=== PATIENT | male | born 1940 | race Caucasian/White ===

== ENCOUNTER 2017-02-24 09:28 | Outpatient (CLI) | payer MEDICARE, OTHER ==
[~2017-02-24 09:28] MED LIST: IOPAMIDOL-300 100 ML VIAL ONE
[2017-02-24 09:50] LABS: CREATININE 0.8 mg/dL (0.6-1.2)
[2017-02-24] MEDS ORDERED: IOPAMIDOL-300 100 ML VIAL IVP ONE (10:29)
--- NOTE | 2017-02-24 18:38 | CT Report ---
DATE OF SERVICE: 02/24/2017 CT IVP: 02/24/2017 CLINICAL INDICATION: Prostate cancer, gross hematuria. Axial CT images of the abdomen and pelvis were obtained prior to and following 100 mL Isovue 300 intravenously, using split bolus technique. In accordance with CT protocol optimization, one or more of the following dose reduction techniques were utilized for this exam: Automated exposure control, adjustment of mA and/or KV based on patient size, or use of iterative reconstructive technique. No previous CT is available for comparison. Limited evaluation of the lung bases is unremarkable. ABDOMEN: On the unenhanced images, there is no evidence of nephrolithiasis or hydronephrosis. Both kidneys demonstrate symmetric uptake and excretion of contrast. No focal renal lesion or collecting system lesion is appreciated. Allowing for the phase of contrast enhancement, the liver, spleen, pancreas and adrenal glands are unremarkable. No hydroureter or ureteric lesion is appreciated. PELVIS: Postoperative changes of prostatectomy and iliac node dissection are present. The distal ureters are not dilated. The urinary bladder appears unremarkable. No free fluid or pelvic adenopathy is appreciated. Osseous structures demonstrate degenerative changes. IMPRESSION: No evident upper tract etiology for patient's hematuria. Consider correlation with cystoscopy. Postoperative changes of prostatectomy and iliac node dissection. TD: 02/24/2017 19:37
== END 2017-02-24 09:29 | disposition home or self-care (01) ==
LOC: LAB 09:28
PROVIDERS: ATTEND Urology
DX: R31.0 Gross hematuria (principal); Z85.46 Personal history of malignant neoplasm of prostate
CPT/HCPCS: 36415; 74178; 82565; 84520; Q9967

== ENCOUNTER 2017-09-13 09:11 | Outpatient (CLI) | payer MEDICARE, OTHER ==
[2017-09-13 12:45] LABS: BASOPHILS # (AUTO) 0.1 10^3/uL (0.0-0.1); BASOPHILS % (AUTO) 1.2 %; EOSINOPHILS # (AUTO) 0.3 10^3/uL (0.0-0.7); EOSINOPHILS % (AUTO) 6.7 %; HGB - HEMOGLOBIN 11.5 g/dL (14.0-18.0); LYMPHOCYTES # (AUTO) 1.1 10^3/uL (1.5-3.5); LYMPHOCYTES % (AUTO) 25.6 %; MEAN CORPUSCULAR HEMOGLOBIN 34.4 pg (27.0-31.0); MEAN CORPUSCULAR HGB CONC 34.7 g/dL (32.0-36.0); MEAN CORPUSCULAR VOLUME 99.3 fL (80.0-94.0); MEAN PLATELET VOLUME 9.6 fL (7.4-11.4); MONOCYTES # (AUTO) 0.5 10^3/uL (0.0-1.0); MONOCYTES % (AUTO) 12.1 %; NEUTROPHILS # (AUTO) 2.4 10^3/uL (1.5-6.6); NEUTROPHILS % (AUTO) 54.4 %; PLT - PLATELET COUNT 225 10^3/uL (130-450); RED BLOOD COUNT 3.34 10^6/uL (4.70-6.10); RED CELL DISTRIBUTION WIDTH 12.4 % (12.0-15.0); WHITE BLOOD COUNT 4.3 x10^3/uL (4.8-10.8)
[2017-09-13 13:29] LABS: ALBUMIN 3.8 g/dL (3.2-5.5); ALBUMIN/GLOBULIN RATIO 1.3 (1.0-2.2); BILIRUBIN,TOTAL 0.7 mg/dL (0.2-1.0); CALCIUM 8.7 mg/dL (8.5-10.3); CREATININE 0.7 mg/dL (0.6-1.2); TOTAL PROTEIN 6.8 g/dL (6.7-8.2)
== END 2017-09-13 09:12 ==
LOC: LAB.WCP 09:11
PROVIDERS: ATTEND Family Medicine
DX: S70.11XD Contusion of right thigh, subsequent encounter (principal)
CPT/HCPCS: 36415; 80053; 85025

== ENCOUNTER 2017-09-27 21:55 | Outpatient (CLI) | payer MEDICARE, OTHER ==
--- NOTE | 2017-09-27 23:25 | Ultrasound Report ---
Procedure Date: 09/27/2017 Accession Number: [id number] / [id number] Procedure: US - Duplex Ext Veins Right CPT Code: FULL RESULT: EXAM: RIGHT LOWER EXTREMITY VENOUS ULTRASOUND EXAM DATE: 09/27/2017 10:53 PM. CLINICAL HISTORY: Contusion of right thigh. COMPARISON: None. TECHNIQUE: Real-time sonographic vascular imaging was performed by the wire stripper through the lower extremity utilizing both color-flow and Doppler spectral analysis. Multiple representative government relations static images were saved for review. FINDINGS: Common Femoral Vein (CFV): Normal. CFV-GSV Junction: Normal. Profunda Femoral Vein (PFV): Normal. Femoral Vein (FV) Prox: Normal. Femoral Vein (FV) Mid: Normal. Femoral Vein (FV) Dist: Normal. Popliteal Vein: Normal. Posterior Tibial Veins: Normal. Peroneal Veins: Normal. Contralateral Left CFV: Normal. Other: None. IMPRESSION: No evidence for deep venous thrombosis. RADIA
== END 2017-09-27 21:56 | disposition home or self-care (01) ==
LOC: DI 21:55
PROVIDERS: ATTEND Orthopaedic Surgery Sports Medicine
DX: S70.11XD Contusion of right thigh, subsequent encounter (principal)

== ENCOUNTER 2018-06-07 08:00 | Outpatient (CLI) | payer MEDICARE, OTHER ==
[2018-06-07 13:39] LABS: BASOPHILS # (AUTO) 0.1 10^3/uL (0.0-0.1); BASOPHILS % (AUTO) 1.3 %; EOSINOPHILS # (AUTO) 0.2 10^3/uL (0.0-0.7); EOSINOPHILS % (AUTO) 4.1 %; HGB - HEMOGLOBIN 13.3 g/dL (14.0-18.0); LYMPHOCYTES # (AUTO) 1.4 10^3/uL (1.5-3.5); MEAN CORPUSCULAR HEMOGLOBIN 33.6 pg (27.0-31.0); MEAN CORPUSCULAR VOLUME 98.8 fL (80.0-94.0); MEAN PLATELET VOLUME 9.8 fL (7.4-11.4); MONOCYTES # (AUTO) 0.6 10^3/uL (0.0-1.0); MONOCYTES % (AUTO) 15.1 %; NEUTROPHILS # (AUTO) 1.7 10^3/uL (1.5-6.6); NEUTROPHILS % (AUTO) 42.5 %; PLT - PLATELET COUNT 230 10^3/uL (130-450); RED BLOOD COUNT 3.95 10^6/uL (4.70-6.10); RED CELL DISTRIBUTION WIDTH 12.5 % (12.0-15.0); WHITE BLOOD COUNT 3.9 x10^3/uL (4.8-10.8)
[2018-06-07 14:59] LABS: ALBUMIN 3.7 g/dL (3.2-5.5); ALBUMIN/GLOBULIN RATIO 1.2 (1.0-2.2); ALKALINE PHOSPHATASE 54 IU/L (42-121); ALT ALANINE AMINOTRANSFERASE 29 IU/L (10-60); AST ASPARTATE AMINOTRANSFERASE 37 IU/L (10-42); BILIRUBIN,TOTAL 0.6 mg/dL (0.2-1.0); BUN - BLOOD UREA NITROGEN 13 mg/dL (6-20); CHOL/HDL RATIO 3.6 (<5.0); CHOLESTEROL 127 mg/dL; CREATININE 0.8 mg/dL (0.6-1.2); GFR - MDRD 94 (>89); HDL CHOLESTEROL 35 mg/dL; MAGNESIUM 2.4 mg/dL (1.7-2.8); TOTAL PROTEIN 6.8 g/dL (6.7-8.2)
[2018-06-07 15:28] LABS: CALCIUM 8.9 mg/dL (8.5-10.3); CARBON DIOXIDE - CO2 31 mmol/L (21-32); CHLORIDE 98 mmol/L (101-111); GLUCOSE 102 mg/dL (70-100); LDL CHOLESTEROL,DIRECT 94 mg/dL; LDLD/HDL RATIO 2.7 (<3.6); SODIUM 138 mmol/L (135-145)
== END 2018-06-07 23:59 | disposition home or self-care (01) ==
LOC: LAB.WCP 08:00
PROVIDERS: ATTEND Family Medicine
DX: D50.9 Iron deficiency anemia, unspecified (principal); R25.2 Cramp and spasm; G60.9 Hereditary and idiopathic neuropathy, unspecified
CPT/HCPCS: 36415; 80053; 80061; 82607; 83721; 83735; 83921; 84443; 85025

== ENCOUNTER 2018-07-27 12:03 | Outpatient (CLI) | payer MEDICARE, OTHER | END 2018-07-27 12:04 | disposition home or self-care (01) | LOC: LAB.WCP 12:03 | PROVIDERS: ATTEND Family Medicine | DX: G60.9 Hereditary and idiopathic neuropathy, unspecified (principal); E53.8 Deficiency of other specified B group vitamins | CPT/HCPCS: 36415; 82607; 83921 ==

== ENCOUNTER 2019-03-20 07:00 | Outpatient (CLI) | payer MEDICARE, OTHER ==
[2019-03-20 19:04] LABS: BASOPHILS # (AUTO) 0.1 10^3/uL (0.0-0.1); BASOPHILS % (AUTO) 1.2 %; EOSINOPHILS # (AUTO) 0.2 10^3/uL (0.0-0.7); EOSINOPHILS % (AUTO) 5.7 %; HGB - HEMOGLOBIN 12.6 g/dL (14.0-18.0); LYMPHOCYTES # (AUTO) 1.4 10^3/uL (1.5-3.5); LYMPHOCYTES % (AUTO) 32.5 %; MEAN CORPUSCULAR HEMOGLOBIN 31.9 pg (27.0-31.0); MEAN CORPUSCULAR HGB CONC 31.6 g/dL (32.0-36.0); MEAN PLATELET VOLUME 12.2 fL (7.4-11.4); MONOCYTES # (AUTO) 0.6 10^3/uL (0.0-1.0); MONOCYTES % (AUTO) 13.4 %; NEUTROPHILS % (AUTO) 47.2 %; PLT - PLATELET COUNT 265 10^3/uL (130-450); RED BLOOD COUNT 3.95 10^6/uL (4.70-6.10); RED CELL DISTRIBUTION WIDTH 12.2 % (12.0-15.0); WHITE BLOOD COUNT 4.2 x10^3/uL (4.8-10.8)
== END 2019-03-20 23:59 | disposition home or self-care (01) ==
LOC: LAB.WCP 07:00
PROVIDERS: ATTEND Family Medicine
DX: E53.8 Deficiency of other specified B group vitamins (principal)
CPT/HCPCS: 36415; 82607; 85025

== ENCOUNTER 2020-04-17 18:48 | Outpatient (CLI) | payer MEDICARE, OTHER | END 2020-04-17 18:49 | disposition home or self-care (01) | LOC: COV 18:48 | PROVIDERS: ATTEND Family Medicine | DX: R50.9 Fever, unspecified (principal); M79.10 Myalgia, unspecified site; R07.0 Pain in throat; R43.8 Other disturbances of smell and taste; Z20.822 Contact with and (suspected) exposure to COVID-19 ==

== ENCOUNTER 2023-05-05 08:00 | Outpatient (CLI) | payer MEDICARE, OTHER ==
[2023-05-05 16:14] LABS: BILIRUBIN,URINE NEGATIVE (NEGATIVE); GLUCOSE, URINE (UA) NEGATIVE (NEGATIVE); KETONES,URINE (UA) NEGATIVE (NEGATIVE); LEUKOCYTE ESTERASE, URINE NEGATIVE (NEGATIVE); NITRITE,URINE NEGATIVE (NEGATIVE); OCCULT BLOOD,URINE NEGATIVE (NEGATIVE); PH,URINE 6.5 PH (5.0-7.5); PROTEIN,URINE NEGATIVE (NEGATIVE); UROBILINOGEN,URINE 0.2 (NORMAL) E.U./dL (NORMAL)
[2023-05-05 16:22] LABS: BACTERIA,URINE None Seen /HPF (None Seen); CLARITY,URINE CLEAR (CLEAR); RBC,URINE 0-5 /HPF (0-5); SQUAMOUS EPITHELIAL CELL,UR NONE SEEN (<= Few); WBC,URINE 0-3 /HPF (0-3)
== END 2023-05-05 23:59 | disposition home or self-care (01) ==
LOC: LAB 08:00
PROVIDERS: ATTEND Urology
DX: C61 Malignant neoplasm of prostate (principal); Z90.79 Acquired absence of other genital organ(s); N30.10 Interstitial cystitis (chronic) without hematuria
CPT/HCPCS: 81001; 87086

== ENCOUNTER 2023-06-13 10:01 | Outpatient (CLI) | payer MEDICARE, OTHER ==
--- NOTE | 2023-06-13 12:06 | MRI Report ---
PROCEDURE: Lumbar Spine WO INDICATIONS: LOW BACK PAIN TECHNIQUE: Noncontrast sagittal T1 spin echo and T2 fast echo, sagittal STIR, axial T1 and T2 fast spin echo thr ough the lumbar spine. In cases with scoliosis, additional coronal T2 fast spin echo may be performe d. COMPARISON: Correlation is made with the accompanying imaging. Correlation is also made with prior C T, 02/24/2017 FINDINGS: Image quality: Motion artifact is noted. Alignment and Curvature: There is normal bony alignment. Bone Marrow: Marrow is of normal overall signal. No acute vertebral body compression fractures. Spinal Cord: Conus medullaris terminates at the L1 level. Visualized cord demonstrates normal signa l and size. Paraspinous Soft Tissues: No paravertebral masses. T12-L1: Normal in appearance. L1-L2: The disc height is well-preserved. There is loss of disc signal seen. Mild disc bulge is s een. Mild bilateral neural foraminal narrowing is seen. No central canal narrowing is seen. L2-L3: Moderate loss of disc height is seen. The disc signal is relatively well preserved. Mild to moderate disc bulge is seen. A superimposed central disc protrusion is seen. There is mild to modera te left-sided and moderate right-sided neuroforaminal narrowing. Mild central canal narrowing is see n. L3-L4: Mild to moderate loss of disc height and disc signal can be seen. Mild disc bulge is seen. A superimposed central disc Mild facet hypertrophy is seen. is seen. Mild facet hypertrophy is s een. Moderate bilateral neural foraminal narrowing is seen. L4-L5: At least moderate loss of disc height and disc signal can be seen. Reactive marrow endplate changes are seen, which are hyperintense on T1-weighted and T2-weighted imaging, without significant increased STIR signal. 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 Mild to moderate disc bulge is seen, which is eccentric to the right. A superimposed centr al disc protrusion is seen. Mild facet hypertrophy is seen. Moderate bilateral neural foraminal na rrowing is seen. Minimal central canal narrowing is seen. L5-S1: Mild loss of disc height and disc signal are seen. Mild disc bulge is seen. There is mild r ight-sided and moderate left-sided facet hypertrophy. There is moderate right-sided and moderate to s evere left-sided neuroforaminal narrowing. There is a new compression seen upon the exiting right L5 nerve root. IMPRESSION: Lumbar spine degenerative changes are seen, which are worst inferiorly. Reviewed by: José Luis Burgess MD on 06/13/2023 11:05 AM TAMMI Approved by: José Luis Burgess MD on 06/13/2023 11:05 AM TAMMI Station ID: [id number]
--- NOTE | 2023-06-13 12:13 | MRI Report ---
PROCEDURE: Cervical Spine WO INDICATIONS: CERVICALGIA TECHNIQUE: Noncontrast sagittal T1 spin echo and T2 fast spin echo, sagittal STIR, foraminal oblique sagittal T2 fast spin echo, and axial gradient echo or T2 fast spin echo through the cervical spine. COMPARISON: Correlation is made with the accompanying imaging. FINDINGS: Image quality: Motion artifact is noted. Alignment and Curvature: There is normal bony alignment. Bone Marrow: Marrow demonstrates normal overall signal. Spinal Cord: Visualized spinal cord has normal size and signal. No cerebellar tonsillar herniation. Paraspinous Soft Tissues: No paravertebral masses. Prevertebral soft tissues are normal in thicknes s. C2-C3: The disc height and disc signal are well preserved. Mild disc osteophyte complex is seen. Th ere is mild left-sided facet hypertrophy. There is mild left-sided neuroforaminal narrowing. No right -sided neuroforaminal narrowing is seen. No central canal narrowing is seen. C3-C4: The disc height is well-preserved. There is loss of disc signal seen. Mild disc osteophyte complex is seen. Moderate facet hypertrophy is seen. There is moderate to severe left-sided and at l east moderate right-sided neuroforaminal narrowing. Minimal central canal narrowing is seen. C4-C5: The disc height is well-preserved. There is loss of disc signal seen. Mild disc osteophyte c omplex is seen. Moderate facet hypertrophy is seen. There is moderate to severe left-sided and moder ate right-sided neuroforaminal narrowing. Minimal central canal narrowing is seen. C5-C6: Moderate loss of disc height and signal are seen. At least moderate disc osteophyte complex is seen. There is a central disc osteophyte protrusion. Uncovertebral joint hypertrophy is seen at this level. There is at least moderate bilateral facet hypertrophy seen, right worse than left. There is moderate to severe right-sided and at least moderate left-sided neuroforaminal narrowing. Modera te central canal narrowing is seen. Associated mass effect is seen upon the ventral spinal cord. C6-C7: Moderate loss of disc height and signal are seen. Moderate disc osteophyte complex is seen. There is a mild central/left disc osteophyte protrusion. Moderate facet hypertrophy is seen. There is moderate to severe right-sided and at least moderate left-sided neuroforaminal narrowing. Mild c entral canal narrowing is seen. C7-T1: No significant abnormality is seen. IMPRESSION: Multiple levels of cervical spine degenerative change can be seen, which are overall worst at the C5- C6 level. Reviewed by: José Luis Burgess MD on 06/13/2023 11:11 AM TAMMI Approved by: José Luis Burgess MD on 06/13/2023 11:11 AM TAMMI Station ID: [id number]
== END 2023-06-13 10:02 | disposition home or self-care (01) ==
LOC: DI 10:01
PROVIDERS: ATTEND Psychiatry & Neurology Neurology
DX: M51.36 Other intervertebral disc degeneration, lumbar region (principal); M48.061 Spinal stenosis, lumbar region without neurogenic claudication; M47.816 Spondylosis without myelopathy or radiculopathy, lumbar region; M47.27 Other spondylosis with radiculopathy, lumbosacral region; M48.07 Spinal stenosis, lumbosacral region; M51.17 Intervertebral disc disorders with radiculopathy, lumbosacral region

== ENCOUNTER 2023-06-15 08:45 | Emergency (ER) | payer MEDICARE, OTHER ==
[2023-06-15] MEDS: ACETAMINOPHEN 500 MG TABLET PO STA (09:10)
--- NOTE | 2023-06-15 09:27 | ED Physician Documentation ---
PD HPI UPPER EXT INJURY - Stated complaint Stated Complaint: RT FINGERS INJ - Chief complaint Chief Complaint: Trauma Ext - History obtained from History obtained from: Patient - Additonal information Additional information: Patient is an 82-year-old male who is right-hand dominant presenting for evaluation of injury to fingers of his right hand that occurred this morning. Patient accidentally slammed an RV door on his fingers. Does not take a blood thinner. Did put his fingers into a bucket of ice to help with pain. Review of Systems Musculoskeletal: reports: Extremity pain PD PAST MEDICAL HISTORY - Present Medications Home Medications: Ambulatory Orders Medication Instructions Recorded Confirmed Acetaminophen [Tylenol] 1 tab PO PRN PRN 06/15/23 06/15/23 Amitriptyline [Elavil] 1 tab PO DAILY 06/15/23 06/15/23 Ibuprofen [Advil] 1 tab PO DAILY 06/15/23 06/15/23 - Allergies Allergies/Adverse Reactions: Allergies Allergy/AdvReac Type Severity Reaction Status Date / Time No Known Drug Allergies Allergy Verified 06/15/23 08:57 - Social History Does the pt smoke?: No Smoking Status: Never smoker Does the pt drink ETOH?: Yes ETOH Use: Beer Does the pt have substance abuse?: No - Immunizations Immunizations are current?: Yes PD ED PE NORMAL - General General: Alert and oriented X 3, No acute distress, Well developed/nourished - HEENT HEENT: Atraumatic - Cardiac Cardiac: Strong equal pulses - Respiratory Respiratory: No respiratory distress - Derm Derm: Other (Tenderness to distal portions of second through fourth fingers, no deformity, good range of motion at all joints, no tenderness more proximally in the hand, no tenderness to the thumb; Brisk cap refill) Results - Vitals Vitals: Vital Signs - 24 hr 06/15/23 06/15/23 08:49 10:12 Temperature 36.3 C L Heart Rate 61 82 Respiratory 14 18 Rate Blood Pressure 121/60 128/82 H O2 Saturation 100 98 Oxygen O2 Source Room air PD Medical Decision Making - ED course Complexity details: reviewed results, d/w patient ED course: Patient is an 82-year-old male presenting for evaluation of injury to his right digits after accidentally slamming it into an RV sliding door. Neurovascularly intact and no visible deformities. Good range of motion of all digits. X-ray was obtained which I reviewed I see no fracture or dislocation. He is feeling better with acetaminophen. Declines finger splints.Advised on continued supportive care. No subungual hematomas to drain. Departure - Departure Disposition: 01 Home, Self Care Clinical Impression: Injury, fingers Qualifiers: Encounter type: initial encounter Laterality: right Qualified Code(s): S69.91XA - Unspecified injury of right wrist, hand and finger(s), initial encounter Condition: Stable Instructions: ED Contusion Hand Comments: Your x-ray does not show any broken bones. Please continue with acetaminophen as needed for pain today. Return to the ER if you have any worsening symptoms. Forms: PCP List Discharge Date/Time: 06/15/23 10:12
--- NOTE | 2023-06-15 09:33 | XRAY Report ---
PROCEDURE: Hand 3+V RT INDICATIONS: slammed fingertips in RV door TECHNIQUE: 3 views of the hand(s) acquired. COMPARISON: None. FINDINGS: Bones: No fractures or dislocations. No suspicious bony lesions. 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 Soft tissues: No suspicious soft tissue calcifications or masses. IMPRESSION: No acute bony abnormality. 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 Reviewed by: Mani Aparicio MD on 06/15/2023 9:32 AM PDT Approved by: Mani Aparicio MD on 06/15/2023 9:32 AM PDT Station ID: [id number]
[2023-06-15 10:17] VITALS: BP 128/82; O2SAT 98
== END 2023-06-15 10:12 | disposition home or self-care (01) ==
LOC: ED 08:45
DX: S69.91XA Unspecified injury of right wrist, hand and finger(s), initial encounter (principal); W23.0XXA Caught, crushed, jammed, or pinched between moving objects, initial encounter; Z79.899 Other long term (current) drug therapy
CPT/HCPCS: 73130; 99283; A9270